=== PATIENT | female | born 1995 | race Two or more races ===

== ENCOUNTER 2017-01-08 23:50 | Emergency (ER) | payer SELFPAY ==
[~2017-01-08] VITALS: Ht 167.6 cm; Wt 59.0 kg
[2017-01-08 23:50] VITALS: BP 115/67
== END 2017-01-09 00:21 ==
LOC: ER 23:52
DX: S70.212A Abrasion, left hip, initial encounter (principal); S40.812A Abrasion of left upper arm, initial encounter; R73.09 Other abnormal glucose; X58.XXXA Exposure to other specified factors, initial encounter; Y93.89 Activity, other specified; Y92.89 Other specified places as the place of occurrence of the external cause; Y99.8 Other external cause status
CPT/HCPCS: 82962; 99283; A4606; Z7610